=== PATIENT | male | born 1935 | race Asian ===

== ENCOUNTER 2022-01-07 10:37 | Emergency (ER) | payer MEDICARE, OTHER ==
[~2022-01-07] VITALS: Ht 165.1 cm; Wt 65.9 kg
[2022-01-07] MEDS ORDERED: BACL10TA PO (10:47)
[2022-01-07] MEDS ORDERED: OMEP20 PO (10:47)
[2022-01-07] MEDS ORDERED: METO25 PO (10:47)
[2022-01-07] MEDS ORDERED: GABA-1181 PO (10:47)
[2022-01-07] MEDS ORDERED: FURO20 PO (10:47)
[2022-01-07] MEDS ORDERED: ATOR20TA86 PO (10:47)
[2022-01-07] MEDS ORDERED: LOSA-381 PO (10:47)
[2022-01-07] MEDS ORDERED: FINA-27 PO (10:47)
[2022-01-07] MEDS ORDERED: ASPI-1450 PO (10:47)
[2022-01-07] MEDS ORDERED: GABAPENTIN 300 MG CAPSULE PO ONE (11:30)
[2022-01-07] MEDS ORDERED: METHOCARBAMOL 500 MG TABLET PO ONE (11:30)
[2022-01-07] MEDS ORDERED: KETOROLAC TROMETHAMINE 30 MG/ML VIAL IM ONE (11:30)
[2022-01-07 13:08] VITALS: BP 154/92
== END 2022-01-07 13:54 | disposition home or self-care (01) ==
LOC: EMS 10:44
DX: M54.50 Low back pain, unspecified (principal); I11.0 Hypertensive heart disease with heart failure; I50.9 Heart failure, unspecified; K21.9 Gastro-esophageal reflux disease without esophagitis; Z79.82 Long term (current) use of aspirin; Z79.899 Other long term (current) drug therapy
CPT/HCPCS: 72131; 96372; 99284; J1885

== ENCOUNTER 2022-06-28 09:25 | Emergency (ER) | payer MEDICARE, OTHER ==
[~2022-06-28] VITALS: Ht 165.1 cm; Wt 68.2 kg
[~2022-06-28 09:25] MED LIST: ASPI-1450 PO; ATOR20TA86 PO; BACL10TA PO; FINA-27 PO; FURO20 PO; GABA-1181 PO; LOSA-381 PO; METO25 PO; OMEP20 PO
[2022-06-28] MEDS ORDERED: KETOROLAC TROMETHAMINE 30 MG/ML VIAL IM ONE (10:15)
[2022-06-28] MEDS ORDERED: LIDOCAINE 5% TRANSDERMAL PATCH TD ONE (10:15)
[2022-06-28] MEDS ORDERED: CYCLOBENZAPRINE HCL 10 MG TABLET PO ONE (10:15)
[2022-06-28] MEDS ORDERED: IBUP-2070 PO (12:17)
[2022-06-28] MEDS ORDERED: CYCL-448 PO (12:17)
[2022-06-28 12:29] VITALS: BP 149/85
[2022-06-29] MEDS ORDERED: CYCL-448 PO (15:52)
[2022-06-29] MEDS ORDERED: IBUP-2070 PO (15:53)
== END 2022-06-28 12:33 | disposition home or self-care (01) ==
LOC: EMS 09:27
DX: M54.16 Radiculopathy, lumbar region (principal); I50.9 Heart failure, unspecified; I11.0 Hypertensive heart disease with heart failure; Z91.040 Latex allergy status
CPT/HCPCS: 99283; 72100; 96372; J1885; 99284

== ENCOUNTER → 2024-03-02 | Outpatient (CLI) | payer MEDICARE, OTHER ==
[~2024-03-02] MED LIST changes: +ATOR20TA PO; -ATOR20TA86 PO; +CYCL-448 PO; +IBUP-1492 PO
== END | disposition home or self-care (01) ==
LOC: RADMN 13:00
PROVIDERS: ATTEND Family Medicine
DX: M47.817 Spondylosis without myelopathy or radiculopathy, lumbosacral region (principal); M19.012 Primary osteoarthritis, left shoulder; M47.814 Spondylosis without myelopathy or radiculopathy, thoracic region; M51.34 Other intervertebral disc degeneration, thoracic region; M25.78 Osteophyte, vertebrae; M16.0 Bilateral primary osteoarthritis of hip; M85.852 Other specified disorders of bone density and structure, left thigh; M85.851 Other specified disorders of bone density and structure, right thigh; M47.812 Spondylosis without myelopathy or radiculopathy, cervical region; M50.30 Other cervical disc degeneration, unspecified cervical region; M43.8X6 Other specified deforming dorsopathies, lumbar region; M41.86 Other forms of scoliosis, lumbar region; M48.05 Spinal stenosis, thoracolumbar region; M48.07 Spinal stenosis, lumbosacral region; M19.011 Primary osteoarthritis, right shoulder; M75.82 Other shoulder lesions, left shoulder; Z98.890 Other specified postprocedural states
CPT/HCPCS: 72040; 72070; 72100; 73521; 73030-TC

== ENCOUNTER 2025-07-19 07:18 | Inpatient (IN) | payer MEDICARE, OTHER ==
[2025-07-19] VITALS (8 sets, daily range): BP systolic 105–152; BP diastolic 50–78; PULSE 85–131; RESP 17–18; TEMP 97.9–99; O2SAT 95–98
[~2025-07-19] VITALS: Ht 154.9 cm; Wt 70.9 kg
[~2025-07-19 07:18] MED LIST changes: -FURO20 PO; +FURO20TA5 PO; +OMEP-148 PO; -OMEP20 PO
[2025-07-19 07:37] LABS: COVID AG,FIA SOURCE NASAL SWAB
[2025-07-19] MEDS ORDERED: [UNRECOGNIZED DRUG - CODE] OU (07:41)
[2025-07-19] MEDS ORDERED: ASPI-1444 PO (07:41)
[2025-07-19] MEDS ORDERED: TIMO5DRO18 OU (07:41)
[2025-07-19] MEDS ORDERED: PREDAOS OU (07:41)
[2025-07-19] MEDS ORDERED: LATA2.5D7 OU (07:41)
[2025-07-19] MEDS ORDERED: DOCU100C33 PO (07:41)
[2025-07-19] MEDS ORDERED: METO-408 PO (07:41)
[2025-07-19] MEDS ORDERED: FURO20TA4 PO (07:41)
[2025-07-19] MEDS ORDERED: FINA5TAB41 PO (07:41)
[2025-07-19] MEDS ORDERED: TERA5CAP4 PO (07:41)
[2025-07-19 07:54] LABS: INFLUENZA TYPE A NEGATIVE FOR TYPE A (NEGATIVE); INFLUENZA TYPE B NEGATIVE FOR TYPE B (NEGATIVE); SARS-COV2 (COVID) ANTIGEN,FIA Negative (Negative)
[2025-07-19 08:44] LABS: PLATELET COUNT (AUTO) 280 K/uL (150-450); RED BLOOD CELL COUNT(AUTO) 3.75 MIL/uL (4.50-5.90); RED CELL DISTRIBUTION WIDTH 13.7 % (11.5-14.5); WHITE BLOOD COUNT (AUTO) 10.1 K/uL (4.5-11.0)
[2025-07-19 08:50] LABS: CALCIUM, TOTAL 8.0 mg/dL (8.8-10.5); CREATININE 0.94 mg/dL (0.60-1.30); GLOMERULAR FILTR. RATE CALC > 60 mL/min (>60); GLUCOSE,RANDOM 127 mg/dL (70-110); SODIUM SERUM 133 mmol/L (136-145); UREA NITROGEN, BLOOD 15 mg/dL (7-18)
[2025-07-19 08:59] LABS: TROPONIN I-HIGH SENSITIVITY 14 ng/L (<76)
[2025-07-19 09:02] LABS: LACTIC ACID 0.7 mmol/L (0.4-2.0)
[2025-07-19] MEDS: CefTRIAXone 1 GM/DEXTROSE 50 ML IV ONE (10:05)
[2025-07-19] MEDS: FUROSEMIDE 40 MG/4 ML VIAL IVP ONE (10:26)
[2025-07-19 10:28] LABS: APPEARANCE,URINE CLEAR (CLEAR); GLUCOSE, URINE (UA) NEGATIVE (NEGATIVE); LEUKOCYTE ESTERASE ,URINE NEGATIVE (NEGATIVE); NITRATE,URINE NEGATIVE (NEGATIVE); OCCULT BLOOD,URINE NEGATIVE (NEGATIVE); SPECIFIC GRAVITIY, URINE 1.009 (1.003-1.030)
[2025-07-19] MEDS ORDERED: IPRATROPIUM BROMIDE 0.5 MG/2.5 ML NEB SOLUTION NEB PRN (15:45)
[2025-07-19] MEDS ORDERED: HYDROCODONE/ACETAMINOPHEN 5-325 MG TABLET PO PRN (15:45)
[2025-07-19] MEDS ORDERED: ALBUTEROL SULFATE 2.5 MG/0.5 ML NEB SOLUTION NEB PRN (15:45)
[2025-07-19] MEDS ORDERED: MAGNESIUM HYDROXIDE SUSPENSION 30 ML UDCUP PO PRN (15:45)
[2025-07-19] MEDS ORDERED: MORPHINE SULFATE 4 MG/ML SYRINGE IVP PRN (15:45)
[2025-07-19] MEDS ORDERED: ACETAMINOPHEN 325 MG TABLET PO PRN (15:45)
[2025-07-19] MEDS ORDERED: BISACODYL 10 MG RECTAL RECTAL SUPPOSITORY PR PRN (15:45)
[2025-07-19] MEDS ORDERED: ONDANSETRON HCL 4 MG/2 ML VIAL IVP PRN (15:45)
[2025-07-19] MEDS: HEPARIN SODIUM,PORCINE 5,000 UNITS/ML VIAL SQ SCH (16:21)
[2025-07-19] MEDS: LEVOFLOXACIN 750 MG/D5% WATER 150 ML IV SCH (17:51)
[2025-07-19] MEDS: DOCUSATE SODIUM 100 MG CAPSULE PO SCH (20:28)
[2025-07-19] MEDS: GuaiFENesin/D-METHORPHAN [SUGAR-FREE] 200-20MG/10 ML SYRUP UDCUP PO PRN (22:24)
[2025-07-19] MEDS ORDERED: SODIUM CHLORIDE 0.9% 250 ML IV ONE (22:31)
[2025-07-19] MEDS: AMIODARONE HCL 150 MG in DEXTROSE 5%-WATER 97 ML IV ONE (22:58)
[2025-07-19] MEDS: ZOLPIDEM TARTRATE 5 MG TABLET PO PRN (23:06)
[2025-07-19] MEDS: AMIODARONE HCL 360 MG in DEXTROSE 5%-WATER 242.8 ML IV ONE (23:06)
[2025-07-20] VITALS (7 sets, daily range): BP systolic 103–142; BP diastolic 61–88; PULSE 57–137; RESP 16–18; TEMP 97.5–98.8; O2SAT 96–99
[2025-07-20] MEDS: AMIODARONE HCL 540 MG in DEXTROSE 5%-WATER 250 ML IV ONE (05:23)
[2025-07-20 06:29] LABS: PLATELET COUNT (AUTO) 299 K/uL (150-450); RED BLOOD CELL COUNT(AUTO) 3.79 MIL/uL (4.50-5.90); RED CELL DISTRIBUTION WIDTH 13.8 % (11.5-14.5); WHITE BLOOD COUNT (AUTO) 10.3 K/uL (4.5-11.0)
[2025-07-20 06:54] LABS: CALCIUM, TOTAL 8.3 mg/dL (8.8-10.5); CREATININE 1.02 mg/dL (0.60-1.30); GLOMERULAR FILTR. RATE CALC > 60 mL/min (>60); GLUCOSE,RANDOM 155 mg/dL (70-110); SODIUM SERUM 132 mmol/L (136-145); TROPONIN I-HIGH SENSITIVITY 15 ng/L (<76); UREA NITROGEN, BLOOD 16 mg/dL (7-18)
[2025-07-20] MEDS ORDERED: ASPIRIN 81 MG DR TABLET PO SCH (09:00)
[2025-07-20] MEDS: PANTOPRAZOLE SODIUM 40 MG DR TABLET PO SCH (09:06)
[2025-07-20] MEDS: FUROSEMIDE 20 MG TABLET PO SCH (09:06)
[2025-07-20] MEDS: METOPROLOL SUCCINATE 25 MG ER TABLET PO SCH (09:07)
[2025-07-20] MEDS: APIXABAN 5 MG TABLET PO SCH (09:07)
[2025-07-20] MEDS: AMIODARONE HCL 200 MG TABLET PO SCH (09:11)
[2025-07-20] MEDS: FINASTERIDE 5 MG TABLET PO SCH (13:41)
[2025-07-20] MEDS ORDERED: AMIODARONE HCL 750 MG in DEXTROSE 5%-WATER 485 ML IV SCH (22:30)
[2025-07-21 04:28] VITALS: BP 119/55; PULSE 90; RESP 18; TEMP 98.2; O2SAT 99
[2025-07-21 05:53] LABS: PLATELET COUNT (AUTO) 294 K/uL (150-450); RED BLOOD CELL COUNT(AUTO) 3.76 MIL/uL (4.50-5.90); RED CELL DISTRIBUTION WIDTH 13.5 % (11.5-14.5); WHITE BLOOD COUNT (AUTO) 9.4 K/uL (4.5-11.0)
[2025-07-21 06:06] LABS: CALCIUM, TOTAL 8.2 mg/dL (8.8-10.5); CREATININE 1.03 mg/dL (0.60-1.30); GLOMERULAR FILTR. RATE CALC > 60 mL/min (>60); GLUCOSE,RANDOM 134 mg/dL (70-110); SODIUM SERUM 129 mmol/L (136-145); UREA NITROGEN, BLOOD 18 mg/dL (7-18)
[2025-07-21 07:47] VITALS: BP 108/81; PULSE 110; RESP 18; TEMP 98.3; O2SAT 98
[2025-07-21] MEDS: AMIODARONE HCL 200 MG TABLET PO SCH (09:12)
[2025-07-21] MEDS: METOPROLOL SUCCINATE 25 MG ER TABLET PO SCH (09:12)
[2025-07-21 11:08] VITALS: BP 122/95; PULSE 114; RESP 18; TEMP 98.1; O2SAT 96
[2025-07-21 15:39] VITALS: BP 130/76; PULSE 103; RESP 19; TEMP 97.5; O2SAT 97
[2025-07-21 19:31] VITALS: BP 117/76; PULSE 86; RESP 18; TEMP 97.5; O2SAT 99
[2025-07-21 23:24] VITALS: BP 138/82; PULSE 125; RESP 19; TEMP 97.7; O2SAT 96
[2025-07-22 03:35] VITALS: BP 126/84; PULSE 108; RESP 19; TEMP 97.1; O2SAT 100
[2025-07-22 07:25] LABS: PLATELET COUNT (AUTO) 320 K/uL (150-450); RED BLOOD CELL COUNT(AUTO) 3.85 MIL/uL (4.50-5.90); RED CELL DISTRIBUTION WIDTH 13.7 % (11.5-14.5); WHITE BLOOD COUNT (AUTO) 9.2 K/uL (4.5-11.0)
[2025-07-22 07:26] LABS: CALCIUM, TOTAL 8.5 mg/dL (8.8-10.5); CREATININE 1.39 mg/dL (0.60-1.30); GLOMERULAR FILTR. RATE CALC 48.0 mL/min (>60); GLUCOSE,RANDOM 123.0 mg/dL (70-110); SODIUM SERUM 126.0 mmol/L (136-145); UREA NITROGEN, BLOOD 23.0 mg/dL (7-18)
[2025-07-22 08:14] VITALS: BP 147/107; PULSE 101; RESP 19; TEMP 97.7; O2SAT 98
[2025-07-22] MEDS: METOPROLOL SUCCINATE 25 MG ER TABLET PO SCH (08:30)
[2025-07-22] MEDS ORDERED: AMOX-457 PO (10:59)
[2025-07-22] MEDS ORDERED: METO25XL PO ×2 (10:59→13:10)
[2025-07-22] MEDS ORDERED: AMIO200T8 PO (10:59)
[2025-07-22] MEDS ORDERED: FURO20TA4 PO (10:59)
[2025-07-22] MEDS ORDERED: APIX5TAB PO (10:59)
[2025-07-22 12:38] VITALS: BP 137/69; PULSE 77; RESP 18; TEMP 97.7; O2SAT 99
== END 2025-07-22 13:35 | disposition home or self-care (01) | DRG 193 ==
LOC: EMS 07:21 → EDH 09:46 → 5S 13:40
PROVIDERS: ADMIT Internal Medicine; ATTEND Internal Medicine
DX: J18.9 Pneumonia, unspecified organism (principal); I50.43 Acute on chronic combined systolic (congestive) and diastolic (congestive) heart failure; I11.0 Hypertensive heart disease with heart failure; I48.0 Paroxysmal atrial fibrillation; Z20.822 Contact with and (suspected) exposure to COVID-19; E78.5 Hyperlipidemia, unspecified; G89.29 Other chronic pain; N40.0 Benign prostatic hyperplasia without lower urinary tract symptoms; K59.00 Constipation, unspecified; K21.9 Gastro-esophageal reflux disease without esophagitis; Z79.01 Long term (current) use of anticoagulants; Z79.899 Other long term (current) drug therapy; Z91.040 Latex allergy status; Z79.82 Long term (current) use of aspirin
CPT/HCPCS: 71045; 80048; 81001; 83605; 83690; 83880; 84443; 84484; 85025; 87040; 87804; 93005; 93306; 96374; 96375; 99285; J0282; J0696; J1644; J1938; J1956; J7050; J7060; 36415-L1; 36415-TC